=== PATIENT | female | born 1955 | race Caucasian/White ===

== ENCOUNTER 2024-04-29 09:05 | Observation (INO) ==
[2024-04-29 09:37] VITALS: BMI 27.3
--- NOTE | 2024-04-29 09:42 | DR.HTN ---
HPI Time Seen Time Seen by Provider: 04/29/24 09:29 Complaints Chief Complaint Doctors Comments: 68-year-old female presents for evaluation.. Her spouse has been ill over the past 5 days or so.. Patient is a poor historian, has a wandering history. Patient has been having diarrhea over the past 5 days. Had nausea and vomiting yesterday. Some general weakness. Patient has fallen 3 times in the past few days. Did have a headache at onset, better now. Was also having right lower leg pain, better now. Patient with slurring of the speech at times, not now. May have been running a fever, think so subjectively. Denies sinus congestion, sore throat, cough, shortness of breath. Denies urinary issues. Was seen in PCPs office yesterday, had high blood pressure, was started on lisinopril then.. Patient recently stopped her oxycodone, she was on chronically. Reviewed Nurses Notes Reviewed: Yes Source History Provided: Patient Mode of Arrival Mode of Arrival: Wheelchair PMH PMH Past Medical History: Anxiety, Arthritis, Depression, GERD and Hyperthyroidism Past Surgical History: Yes Surgical History: Ortho Surgery Social History Does patient currently use any type of tobacco product: No Alcohol Use: None Do you use any recreational Drugs:: No ROS Review of Systems Constitutional: No Symptoms Reported Eyes: No Symptoms Reported ENTM: No Symptoms Reported Respiratoy: No Symptoms Reported Cardiovascular: No Symptoms Reported Gastrointestinal/Abdominal: See HPI Genitourinary: No Symptoms Reported Neurological: Headache and Weakness Musculoskeletal: No Symptoms Reported Integumentary: No Symptoms Reported Hematologic/Lymphatic: No Symptoms Reported All Other Systems: Reviewed and Negative PE Vital Signs Vitals: Vital Signs Temperature 98.2 F Pulse Rate 59 Pulse Rate 62 Pulse Rate 79 Pulse Rate 61 Pulse Rate 72 Pulse Rate 62 Pulse Rate 61 Pulse Rate 67 Respiratory Rate 18 Respiratory Rate 25 Respiratory Rate 25 Respiratory Rate 17 Respiratory Rate 19 Respiratory Rate 20 Respiratory Rate 16 Blood Pressure 190/84 Blood Pressure 234/95 O2 Sat by Pulse Oximetry 100 O2 Sat by Pulse Oximetry 100 O2 Sat by Pulse Oximetry 100 O2 Sat by Pulse Oximetry 99 O2 Sat by Pulse Oximetry 97 O2 Sat by Pulse Oximetry 98 O2 Sat by Pulse Oximetry 98 O2 Sat by Pulse Oximetry 100 General General Appearance: Alert and In No Apparent Distress Head Head Exam: Normal Inspection, Atraumatic and Normocephalic Eyes Eye exam: PERRL and EOMI ENT ENT Exam: Normal Oropharynx and Mucous Membranes Moist Neck Neck Exam: Normal Inspection Respiratory Respiratory Exam: Normal Lung Sounds Bilat; negative Accessory Muscle Use or Respiratory Distress Cardiovascular Cardiovascular Exam: Regular Rate, Normal Rhythm and Normal Heart Sounds Abdominal Exam Abdominal Exam: Normal Bowel Sounds and Soft; negative Tenderness, Guarding or Rebound Extremities Extremities Exam: Normal Inspection Neurologic Neurological Exam: Alert, Oriented X3 and CN II-XII Intact; negative Motor Sensory Deficit Skin Skin Exam: Warm and Dry COURSE Treatment Treatment: 68-year-old female ill over the past 5 days, has been having diarrhea and decreased p.o. intake. Has been having falls and confusion. Workup initiated. Brain CT unremarkable for acute abnormalities. Chest x-ray is cleared. Labs show mild anemia, hemoglobin 10.3. Chemistries markedly abnormal with a sodium low at 125. She has a elevated creatinine of 4.02, EGFR is low at 12. BP elevated, given IV hydralazine. Patient clinically with acute nontraumatic renal injury, and hyponatremia. Recommend admission for further treatment. Discussed with her covering MD, Dr. Henderson, accepts the admission. ROR Labs Reviewed Laboratory Results Reviewed?: Yes 04/29/24 09:35 04/29/24 09:35 Laboratory: WBC 6.9 X10^3/uL (3.6-10.0) 04/29/24 09:35 RBC 3.50 X10^6/uL (3.5-5.4) 04/29/24 09:35 Hgb 10.3 g/dL (12.0-16.0) L 04/29/24 09:35 Hct 30.4 % (36.0-47.0) L 04/29/24 09:35 MCV 86.8 fL (80.0-100.0) 04/29/24 09:35 MCH 29.3 pg (27.0-34.0) 04/29/24 09:35 MCHC 33.8 g/dL (33.0-35.0) 04/29/24 09:35 RDW 13.1 % (11.6-16.5) 04/29/24 09:35 Plt Count 309 X10^3/uL (150.0-450.0) 04/29/24 09:35 MPV 8.1 fL (7.4-11.0) 04/29/24 09:35 Neut % (Auto) 67.4 % (42.0-75.0) 04/29/24 09:35 Lymph % (Auto) 18.7 % (21.0-51.0) L 04/29/24 09:35 [place] % (Auto) 8.8 % (0.0-13.0) 04/29/24 09:35 Eos % (Auto) 4.0 % (0.9-2.9) H 04/29/24 09:35 Baso % (Auto) 1.1 % (0.2-1.0) H 04/29/24 09:35 Neut # (Auto) 4.6 x10^3/uL (2.2-4.8) 04/29/24 09:35 Lymph # (Auto) 1.3 X10^3/uL (1.3-2.9) 04/29/24 09:35 [place] # (Auto) 0.6 x10^3/uL (0.3-0.8) 04/29/24 09:35 Eos # (Auto) 0.3 x10^3/uL (0.0-0.2) H 04/29/24 09:35 Baso # (Auto) 0.1 X10^3/uL (0.0-0.1) 04/29/24 09:35 Absolute Nucleated RBC 0.1 /100WBC 04/29/24 09:35 Sodium 125 mmol/L (136-145) L* 04/29/24 09:35 Corrected Sodium TNP 04/29/24 09:35 Potassium 3.7 mmol/L (3.5-5.1) 04/29/24 09:35 Chloride 94 mmol/L (98-107) L 04/29/24 09:35 Carbon Dioxide 21.3 mmol/L (21-32) 04/29/24 09:35 BUN 22 mg/dL (7-18) H 04/29/24 09:35 Creatinine 4.02 mg/dL (0.55-1.02) H 04/29/24 09:35 Est GFR (MDRD) Af Amer 14 (>60) L 04/29/24 09:35 Est GFR (MDRD) Non-Af 12 (>60) L 04/29/24 09:35 Glucose 96 mg/dL (65-99) 04/29/24 09:35 Calcium 8.8 mg/dL (8.5-10.1) 04/29/24 09:35 Corrected Calcium 9.6 mg/dL (8.5-10.1) 04/29/24 09:35 Total Bilirubin 0.40 mg/dL (0.2-1.0) 04/29/24 09:35 AST 24 Units/L (15-37) 04/29/24 09:35 ALT 16 Units/L (12-78) 04/29/24 09:35 Alkaline Phosphatase 90 Units/L (46-116) 04/29/24 09:35 Troponin I High Sens < 4.0 ng/L (4.0-60.0) L 04/29/24 09:35 Total Protein 6.3 g/dL (6.4-8.2) L 04/29/24 09:35 Albumin 3.0 g/dL (3.4-5.0) L 04/29/24 09:35 Globulin 3.3 g/dL (2.5-4.5) 04/29/24 09:35 Albumin/Globulin Ratio 0.9 Ratio (1.1-2.1) L 04/29/24 09:35 Lipase 55 Units/L (16-77) 04/29/24 09:35 Specimen Type Clean catch urine 04/29/24 10:34 Urine Color Straw (YELLOW) 04/29/24 10:34 Urine Appearance Clear (CLEAR) 04/29/24 10:34 Urine pH 6.0 (5.0 - 8.0) 04/29/24 10:34 Ur Specific [place] 1.010 (1.000-1.030) 04/29/24 10:34 Urine Protein 1+ (NEGATIVE) 04/29/24 10:34 Urine Glucose (UA) Negative (NEGATIVE) 04/29/24 10:34 Urine Ketones Negative (NEGATIVE) 04/29/24 10:34 Urine Blood Negative (NEGATIVE) 04/29/24 10:34 Urine Nitrite Negative (NEGATIVE) 04/29/24 10:34 Urine Bilirubin Negative (NEGATIVE) 04/29/24 10:34 Urine Urobilinogen Normal (NORMAL) 04/29/24 10:34 Ur Leukocyte Esterase Negative (NEGATIVE) 04/29/24 10:34 Urine RBC 0-2 /HPF (0-3) 04/29/24 10:34 Urine WBC 3-5 /HPF (0-5) 04/29/24 10:34 Ur Squamous Epith Cells Moderate /HPF (NEGATIVE) 04/29/24 10:34 Urine Bacteria Negative /HPF (NEGATIVE) 04/29/24 10:34 Ur Culture Indicated? No/not indicated 04/29/24 10:34 Urine Opiates Screen Negative (NEG=<300) 04/29/24 10:34 Urine Methadone Screen Negative (NEG=<300) 04/29/24 10:34 Ur Barbiturates Screen Negative (NEG=<200) 04/29/24 10:34 Ur Phencyclidine Scrn Negative (NEG=<25) 04/29/24 10:34 Ur Amphetamines Screen Negative (NEG=<1000) 04/29/24 10:34 U Benzodiazepines Scrn Positive (NEG=<200) A 04/29/24 10:34 Urine Cocaine Screen Negative (NEG=<300) 04/29/24 10:34 U Marijuana (THC) Screen Negative (NEG=<50) 04/29/24 10:34 Sodium low at 125, creatinine elevated at 4.02, EGFR low at 12 XRAY XRAY Interpreted by: Both X-ray Results: CXR, brain CT acceptable. EKG Rate: 63 [place]: LAD (-27) Rhythm: NSR ST: Nonsp Opioid Opioid Risk Tool Age (Fred box if 16-45): No History of Preadolescent Sexual Abuse: No Total: 0 Total Score Risk Category: Low Risk Copyright: Evin POZO predicting aberrant behaviors Discharge Plan Diagnosis Discharge Problem: Acute nontraumatic kidney injury, Acute hyponatremia Discharge Plan Patient Disposition: ADMITTED INPATIENT Condition: Stable
[2024-04-29] MEDS: NS 1,000 ML IV 1,000 ML IV ONE (09:50)
[2024-04-29 09:52] LABS: BASOPHILS # (AUTO) 0.1 X10^3/uL (0.0-0.1); BASOPHILS % (AUTO) 1.1 % (0.2-1.0); EOSINOPHILS # (AUTO) 0.3 x10^3/uL (0.0-0.2); HEMATOCRIT 30.4 % (36.0-47.0); HEMOGLOBIN 10.3 g/dL (12.0-16.0); LYMPHOCYTES # (AUTO) 1.3 X10^3/uL (1.3-2.9); LYMPHOCYTES % (AUTO) 18.7 % (21.0-51.0); MEAN CORPUSCULAR HEMOGLOBIN 29.3 pg (27.0-34.0); MEAN CORPUSCULAR HGB CONC 33.8 g/dL (33.0-35.0); MEAN CORPUSCULAR VOLUME 86.8 fL (80.0-100.0); MEAN PLATELET VOLUME 8.1 fL (7.4-11.0); MONOCYTES # (AUTO) 0.6 x10^3/uL (0.3-0.8); MONOCYTES % (AUTO) 8.8 % (0.0-13.0); NEUTROPHILS # (AUTO) 4.6 x10^3/uL (2.2-4.8); NEUTROPHILS % (AUTO) 67.4 % (42.0-75.0); PLATELET COUNT 309 X10^3/uL (150.0-450.0); RED CELL DISTRIBUTION WIDTH 13.1 % (11.6-16.5); WHITE BLOOD COUNT 6.9 X10^3/uL (3.6-10.0)
--- NOTE | 2024-04-29 09:56 | EKG ---
Test Reason : altered mental status Blood Pressure : */* mmHG Vent. Rate : 63 BPM Atrial Rate : 63 BPM P-R Int : 154 ms QRS Dur : 90 ms QT Int : 444 ms P-R-T Axes : -5 -27 10 degrees QTc Int : 454 ms Normal sinus rhythm Nonspecific T wave abnormality Abnormal ECG When compared with ECG of 28-SEP-2023 19:51, No significant change was found Confirmed by Martinez Arana MD ([id number]) on 04/30/2024 7:36:05 AM Referred By: Confirmed By: Martinez Arana MD
[2024-04-29 10:08] LABS: ALANINE AMINOTRANSFERASE 16 Units/L (12-78); ALKALINE PHOSPHATASE 90 Units/L (46-116); ASPARTATE AMINO TRANSFERASE 24 Units/L (15-37); BLOOD UREA NITROGEN 22 mg/dL (7-18); CALCIUM 8.8 mg/dL (8.5-10.1); CARBON DIOXIDE 21.3 mmol/L (21-32); CHLORIDE 94 mmol/L (98-107); COR CA(FOR HYPOALB) 9.6 mg/dL (8.5-10.1); CREATININE 4.02 mg/dL (0.55-1.02); GLUCOSE 96 mg/dL (65-99); LIPASE 55 Units/L (16-77); POTASSIUM 3.7 mmol/L (3.5-5.1); TOTAL PROTEIN 6.3 g/dL (6.4-8.2); eGFR NON BLACK RACES 12 (>60)
[2024-04-29 10:10] LABS: SODIUM 125 mmol/L (136-145)
--- NOTE | 2024-04-29 10:26 | CT ---
EXAM: BRAIN W/O CON HISTORY: altered mental status; COMPARISON: None. TECHNIQUE: Axial CT of the head is performed from the base of the skull through the vertex without contrast . Mu ltiplaner reformats are generated from the original axial data. FINDINGS: There is no evidence of an acute intracranial hemorrhage or extra-axial fluid collection. There is n o mass effect, midline shift, or evidence of cerebral edema. The ventricular size is normal. Cortic al mac-white matter differentiation is maintained without sulcal effacement. There is no evidence o f an acute stage, large artery territorial infarction. The calvarium is intact. The paranasal sinuses and mastoid air cells are clear. The cerebellar tons ils are normal in position. No suprasellar asymmetry is identified. Mild age-related cortical volume loss is observed, along with degenerative periventricular white vernell er hypoattenuation most likely on the basis of normal aging or microangiopathic degeneration. IMPRESSION: No acute intracranial abnormalities Radiation dose reduction was achieved through individualized adjustment of kVP and/or mA, through ada ptive statistical iterative reconstruction, and/or through automated tube current modulation. THIS IS AN ELECTRONICALLY VERIFIED FINAL REPORT 04/29/2024 10:17 AM - Electronically signed by Ciro Hackett MD
--- NOTE | 2024-04-29 10:26 | RAD ---
EXAM:CHEST, 1 VIEWHISTORY:ALTERED MENTAL STATUS;COMPARISON:September 28TECHNIQUE:Chest x-ray single view performedFINDINGS:Heart size and mediastinal contours are normal. Lungs are predominantly clear aside from minimal subsegmental linear atelectasis or parenchymal scarring in the left lung base which is unchanged. No developing pleural fluid collections are identified. No free air or pneumothorax. No acute bony abnormality.IMPRESSION:Stable chest radiograph without acute abnormalities.THIS IS AN ELECTRONICALLY VERIFIED FINAL REPORT04/29/2024 10:18 AM - Electronically signed by Ciro Hackett MD
[2024-04-29 10:43] LABS: BILIRUBIN,URINE NEGATIVE (NEGATIVE); BLOOD/HEMOGLOBIN,URINE NEGATIVE (NEGATIVE); GLUCOSE, URINE NEGATIVE (NEGATIVE); KETONES,URINE NEGATIVE (NEGATIVE); LEUKOCYTE ESTERASE ,URINE NEGATIVE (NEGATIVE); NITRITES,URINE NEGATIVE (NEGATIVE); PROTEIN,URINE 1+ (NEGATIVE); UROBILINOGEN,URINE NORMAL (NORMAL)
[2024-04-29 10:54] LABS: APPEARANCE,URINE CLEAR (CLEAR); COLOR,URINE STRAW (YELLOW); RBC,URINE 0-2 /HPF (0-3); SQUAMOUS EPITHELIAL CELL,UR MODERATE /HPF (NEGATIVE)
[2024-04-29 10:56] LABS: BACTERIA,URINE NEGATIVE /HPF (NEGATIVE)
[2024-04-29] MEDS: APRESOLINE INJ 20 MG VIAL IVP ONE ×2 (11:03→12:05)
[2024-04-29 12:43] LABS: BILIRUBIN,URINE NEGATIVE (NEGATIVE); BLOOD/HEMOGLOBIN,URINE NEGATIVE (NEGATIVE); GLUCOSE, URINE NEGATIVE (NEGATIVE); KETONES,URINE NEGATIVE (NEGATIVE); LEUKOCYTE ESTERASE ,URINE NEGATIVE (NEGATIVE); NITRITES,URINE NEGATIVE (NEGATIVE); PROTEIN,URINE 1+ (NEGATIVE); UROBILINOGEN,URINE NORMAL (NORMAL)
[2024-04-29] MEDS: APRESOLINE INJ 20 MG VIAL ONE (12:43)
[2024-04-29 12:51] LABS: APPEARANCE,URINE CLEAR (CLEAR); COLOR,URINE STRAW (YELLOW)
[2024-04-29 12:52] LABS: BACTERIA,URINE NEGATIVE /HPF (NEGATIVE); RBC,URINE NONE SEEN /HPF (0-3); SQUAMOUS EPITHELIAL CELL,UR RARE /HPF (NEGATIVE)
[2024-04-29] MEDS ORDERED: AMBIEN PO PRN (13:08)
[2024-04-29] MEDS: CONSULT PHARMACY - POTASSIUM & MAGNESIUM XX SCH (13:10)
[2024-04-29] MEDS: NS 1,000 ML IV 1,000 ML IV SCH (13:27)
[2024-04-29] MEDS: PROzac PO SCH (13:27)
[2024-04-29] MEDS: PERCOCET TAB 5/325 MG PO PRN (15:11)
[2024-04-29] MEDS: CATAPRES TAB 0.1 MG PO ONE (16:39)
[2024-04-29] MEDS: FLONASE NASAL SPRAY ENOSTRIL SCH (16:40)
[2024-04-29] MEDS: ZANAFLEX PO SCH (20:50)
[2024-04-30 05:27] LABS: BASOPHILS # (AUTO) 0.1 X10^3/uL (0.0-0.1); BASOPHILS % (AUTO) 1.2 % (0.2-1.0); EOSINOPHILS # (AUTO) 0.2 x10^3/uL (0.0-0.2); EOSINOPHILS % (AUTO) 2.9 % (0.9-2.9); HEMOGLOBIN 9.7 g/dL (12.0-16.0); LYMPHOCYTES # (AUTO) 1.6 X10^3/uL (1.3-2.9); MEAN CORPUSCULAR HEMOGLOBIN 29.1 pg (27.0-34.0); MEAN CORPUSCULAR HGB CONC 33.5 g/dL (33.0-35.0); MEAN CORPUSCULAR VOLUME 86.8 fL (80.0-100.0); MEAN PLATELET VOLUME 8.5 fL (7.4-11.0); MONOCYTES # (AUTO) 0.5 x10^3/uL (0.3-0.8); MONOCYTES % (AUTO) 8.8 % (0.0-13.0); NEUTROPHILS # (AUTO) 3.2 x10^3/uL (2.2-4.8); NEUTROPHILS % (AUTO) 58.1 % (42.0-75.0); PLATELET COUNT 326 X10^3/uL (150.0-450.0); RED BLOOD COUNT 3.34 X10^6/uL (3.5-5.4); RED CELL DISTRIBUTION WIDTH 13.3 % (11.6-16.5); WHITE BLOOD COUNT 5.5 X10^3/uL (3.6-10.0)
[2024-04-30 05:43] LABS: ALANINE AMINOTRANSFERASE 14 Units/L (12-78); ALBUMIN 2.7 g/dL (3.4-5.0); ALKALINE PHOSPHATASE 81 Units/L (46-116); ASPARTATE AMINO TRANSFERASE 13 Units/L (15-37); BLOOD UREA NITROGEN 22 mg/dL (7-18); CALCIUM 8.5 mg/dL (8.5-10.1); CARBON DIOXIDE 20.1 mmol/L (21-32); CHLORIDE 103 mmol/L (98-107); COR CA(FOR HYPOALB) 9.5 mg/dL (8.5-10.1); CREATININE 3.01 mg/dL (0.55-1.02); GLUCOSE 85 mg/dL (65-99); POTASSIUM 3.6 mmol/L (3.5-5.1); SODIUM 134 mmol/L (136-145); eGFR NON BLACK RACES 16 (>60)
[2024-04-30] MEDS ORDERED: CONSULT PHARMACY - POTASSIUM & MAGNESIUM XX SCH (07:00)
[2024-04-30] MEDS: FOLIC ACID TAB 1 MG PO SCH (08:57)
[2024-04-30] MEDS: ESTRACE PO SCH (08:57)
[2024-04-30] MEDS: ZyrTEC TAB 10 MG PO SCH (08:57)
[2024-04-30] MEDS: K-DUR TAB 20 MEQ PO SCH (08:57)
[2024-04-30] MEDS: PriLOSEC PO SCH (08:57)
[2024-04-30] MEDS: PEPCID TAB 20 MG PO SCH (08:57)
[2024-04-30] MEDS ORDERED: ZESTRIL TAB 5 MG PO SCH (09:00)
--- NOTE | 2024-04-30 09:56 | DR.H&P ---
H&P History & Physical for Day of: H&P Date: 04/30/24 Chief Complaint Chief Complaint: weakness, diarrhea and poor appetite History of Present Illness History of Present Illness: Ms Jean Baptiste is a 68y/o female with a PMH of HTN, G ERD, Anxiety, depression and HLD presented with generalized weakness, diarrhea and poor oral intake. She reports being sick for almost a week with diarrhea. She has had decreased oral intake. She was also having a headache and elevated BP. Er work up showed Na 125, BUN/Cr 22/4.02, UA, CXR and CT-brain were all negative. COVID negative. She was given IV hydralazine and clonidine for BP. She was started on IV hydration and admitted for LENNIE and dehydration. She is feeling better this morning. Her BP remains elevated. She has not had any diarrhea since admission. Labs/imaging reviewed: -WBC 5.5 Hgb 9.7 K 3.6 Na: 134 BUN/Cr 22/3.01 -UA negative -CXR no acute process -CT-brain: no acute changes Plan: continue hydration with NS, monitor renal function and electrolytes. Replace electrolytes as per protocol. Will add amlodipine for HTN. C. diff pending. Resume home medications. Hold nephrotoxic medications. PT/OT as tolerated. Monitor AM labs/imaging. Past Medical History Past Medical History: Anxiety, Arthritis, Depression, GERD and Hyperthyroidism Past Surgical History Surgical History: Appendectomy, Cholecystectomy, Hysterectomy and Ortho Surgery Family History Family Medical History: Hypertension Social History Does patient currently use any type of tobacco product: No Have you used tobacco products in the last 12 months: No Type of Tobacco Use: None Does any household member use tobacco: No Alcohol Use: None Drug Use: Other Medications Home Medications: Home Medications Medication Instructions Recorded Confirmed Type alprazolam 1 mg tablet (Xanax) 1 mg PO BID PRN 09/28/23 04/29/24 History cetirizine 10 mg tablet (Zyrtec) 10 mg PO QDAY 09/28/23 04/29/24 History dicyclomine 20 mg tablet 20 mg PO QDAY PRN 09/28/23 04/29/24 History estradiol 2 mg tablet 2 mg PO QDAY 09/28/23 04/29/24 History famotidine 20 mg tablet 20 mg PO BID 09/28/23 04/29/24 History fluoxetine 20 mg capsule (Prozac) 40 mg PO DAILY 09/28/23 04/29/24 History folic acid 1 mg tablet 1 mg PO QDAY 09/28/23 04/29/24 History meloxicam 15 mg tablet 15 mg PO QDAY 09/28/23 04/29/24 History omeprazole 40 mg capsule,delayed 40 mg PO QDAY 09/28/23 04/29/24 History release oxycodone-acetaminophen 10 mg-325 1 tab PO TID PRN 09/28/23 04/29/24 History mg tablet pregabalin 50 mg capsule (Lyrica) 50 mg PO BID 09/28/23 04/29/24 History valacyclovir 1 gram tablet 1,000 mg PO TID 09/28/23 04/29/24 History lisinopril 2.5 mg tablet 2.5 mg PO QDAY 04/29/24 04/29/24 History ondansetron 4 mg disintegrating 4 mg PO Q6HR PRN 04/29/24 04/29/24 History tablet rosuvastatin 5 mg tablet 5 mg PO QMWF 04/29/24 04/29/24 History tizanidine 4 mg tablet 4 mg PO BID 04/29/24 04/29/24 History zolpidem 10 mg tablet 10 mg PO HS 04/29/24 04/29/24 History Allergies Allergies Allergy/AdvReac Type Severity Reaction Status Date / Time No Known Allergies Allergy Verified 09/28/23 20:01 Labs 04/30/24 04:28 04/30/24 04:28 Labs: Laboratory WBC 5.5 X10^3/uL (3.6-10.0) 04/30/24 04:28 RBC 3.34 X10^6/uL (3.5-5.4) L 04/30/24 04:28 Hgb 9.7 g/dL (12.0-16.0) L 04/30/24 04:28 Hct 29.0 % (36.0-47.0) L 04/30/24 04:28 MCV 86.8 fL (80.0-100.0) 04/30/24 04:28 MCH 29.1 pg (27.0-34.0) 04/30/24 04:28 MCHC 33.5 g/dL (33.0-35.0) 04/30/24 04:28 RDW 13.3 % (11.6-16.5) 04/30/24 04:28 Plt Count 326 X10^3/uL (150.0-450.0) 04/30/24 04:28 MPV 8.5 fL (7.4-11.0) 04/30/24 04:28 Neut % (Auto) 58.1 % (42.0-75.0) 04/30/24 04:28 Lymph % (Auto) 29.0 % (21.0-51.0) 04/30/24 04:28 [place] % (Auto) 8.8 % (0.0-13.0) 04/30/24 04:28 Eos % (Auto) 2.9 % (0.9-2.9) 04/30/24 04:28 Baso % (Auto) 1.2 % (0.2-1.0) H 04/30/24 04:28 Neut # (Auto) 3.2 x10^3/uL (2.2-4.8) 04/30/24 04:28 Lymph # (Auto) 1.6 X10^3/uL (1.3-2.9) 04/30/24 04:28 [place] # (Auto) 0.5 x10^3/uL (0.3-0.8) 04/30/24 04:28 Eos # (Auto) 0.2 x10^3/uL (0.0-0.2) 04/30/24 04:28 Baso # (Auto) 0.1 X10^3/uL (0.0-0.1) 04/30/24 04:28 Absolute Nucleated RBC 0.0 /100WBC 04/30/24 04:28 Sodium 134 mmol/L (136-145) L 04/30/24 04:28 Corrected Sodium TNP 04/30/24 04:28 Potassium 3.6 mmol/L (3.5-5.1) 04/30/24 04:28 Chloride 103 mmol/L (98-107) 04/30/24 04:28 Carbon Dioxide 20.1 mmol/L (21-32) L 04/30/24 04:28 BUN 22 mg/dL (7-18) H 04/30/24 04:28 Creatinine 3.01 mg/dL (0.55-1.02) H 04/30/24 04:28 Est GFR (MDRD) Af Amer 20 (>60) L 04/30/24 04:28 Est GFR (MDRD) Non-Af 16 (>60) L 04/30/24 04:28 Glucose 85 mg/dL (65-99) 04/30/24 04:28 Calcium 8.5 mg/dL (8.5-10.1) 04/30/24 04:28 Corrected Calcium 9.5 mg/dL (8.5-10.1) 04/30/24 04:28 Magnesium 2.1 mg/dL (2.0-2.9) 04/29/24 09:35 Total Bilirubin 0.30 mg/dL (0.2-1.0) 04/30/24 04:28 AST 13 Units/L (15-37) L 04/30/24 04:28 ALT 14 Units/L (12-78) 04/30/24 04:28 Alkaline Phosphatase 81 Units/L (46-116) 04/30/24 04:28 Troponin I High Sens < 4.0 ng/L (4.0-60.0) L 04/29/24 09:35 Total Protein 6.0 g/dL (6.4-8.2) L 04/30/24 04:28 Albumin 2.7 g/dL (3.4-5.0) L 04/30/24 04:28 Globulin 3.3 g/dL (2.5-4.5) 04/30/24 04:28 Albumin/Globulin Ratio 0.8 Ratio (1.1-2.1) L 04/30/24 04:28 Lipase 55 Units/L (16-77) 04/29/24 09:35 Specimen Type Catherized urine 04/29/24 12:20 Urine Color Straw (YELLOW) 04/29/24 12:20 Urine Appearance Clear (CLEAR) 04/29/24 12:20 Urine pH 6.0 (5.0 - 8.0) 04/29/24 12:20 Ur Specific [place] 1.005 (1.000-1.030) 04/29/24 12:20 Urine Protein 1+ (NEGATIVE) 04/29/24 12:20 Urine Glucose (UA) Negative (NEGATIVE) 04/29/24 12:20 Urine Ketones Negative (NEGATIVE) 04/29/24 12:20 Urine Blood Negative (NEGATIVE) 04/29/24 12:20 Urine Nitrite Negative (NEGATIVE) 04/29/24 12:20 Urine Bilirubin Negative (NEGATIVE) 04/29/24 12:20 Urine Urobilinogen Normal (NORMAL) 04/29/24 12:20 Ur Leukocyte Esterase Negative (NEGATIVE) 04/29/24 12:20 Urine RBC None seen /HPF (0-3) 04/29/24 12:20 Urine WBC None seen /HPF (0-5) 04/29/24 12:20 Ur Squamous Epith Cells Rare /HPF (NEGATIVE) 04/29/24 12:20 Urine Bacteria Negative /HPF (NEGATIVE) 04/29/24 12:20 Ur Culture Indicated? No/not indicated 04/29/24 12:20 Urine Opiates Screen Negative (NEG=<300) 04/29/24 10:34 Urine Methadone Screen Negative (NEG=<300) 04/29/24 10:34 Ur Barbiturates Screen Negative (NEG=<200) 04/29/24 10:34 Ur Phencyclidine Scrn Negative (NEG=<25) 04/29/24 10:34 Ur Amphetamines Screen Negative (NEG=<1000) 04/29/24 10:34 U Benzodiazepines Scrn Positive (NEG=<200) A 04/29/24 10:34 Urine Cocaine Screen Negative (NEG=<300) 04/29/24 10:34 U Marijuana (THC) Screen Negative (NEG=<50) 04/29/24 10:34 SARS-CoV-2 (PCR) Negative (NEGATIVE) 04/29/24 12:03 Review of Systems Constitutional: Weakness Eyes: No Symptoms Reported ENT: No Symptoms Reported Respiratory: No Symptoms Reported Cardiovascular: No Symptoms Reported Gastrointestinal: Vomiting and Diarrhea Genitourinary: No Symptoms Reported Musculoskeletal: No Symptoms Reported Skin: No Symptoms Reported Neurological: No Symptoms Reported Physical Exam Vital Signs: Vital Signs Temperature 98.3 F Pulse Rate 75 Pulse Rate 84 Pulse Rate 66 Pulse Rate 76 Pulse Rate 69 Pulse Rate 65 Pulse Rate 64 Pulse Rate 67 Pulse Rate 70 Pulse Rate 61 Pulse Rate 62 Pulse Rate 59 Pulse Rate 59 Pulse Rate 66 Pulse Rate 68 Respiratory Rate 16 Respiratory Rate 21 Respiratory Rate 21 Respiratory Rate 19 Respiratory Rate 16 Respiratory Rate 24 Respiratory Rate 20 Respiratory Rate 14 Respiratory Rate 15 Respiratory Rate 16 Respiratory Rate 17 Respiratory Rate 17 Respiratory Rate 15 Respiratory Rate 15 Respiratory Rate 20 Respiratory Rate 20 Blood Pressure 162/72 Blood Pressure 179/76 Blood Pressure 173/69 Blood Pressure 158/97 Blood Pressure 178/74 Blood Pressure 182/79 Blood Pressure 162/71 Blood Pressure 150/65 Blood Pressure 144/63 Blood Pressure 157/69 Blood Pressure 158/69 Blood Pressure 146/64 Blood Pressure 146/64 Blood Pressure 138/62 Blood Pressure 154/67 O2 Sat by Pulse Oximetry 98 O2 Sat by Pulse Oximetry 98 O2 Sat by Pulse Oximetry 100 O2 Sat by Pulse Oximetry 99 O2 Sat by Pulse Oximetry 100 O2 Sat by Pulse Oximetry 99 O2 Sat by Pulse Oximetry 97 O2 Sat by Pulse Oximetry 98 O2 Sat by Pulse Oximetry 99 O2 Sat by Pulse Oximetry 97 O2 Sat by Pulse Oximetry 98 O2 Sat by Pulse Oximetry 97 O2 Sat by Pulse Oximetry 97 O2 Sat by Pulse Oximetry 97 O2 Sat by Pulse Oximetry 98 Oriented: Normal Eyes: Normal Throat: Normal Respiratory: Clear Throughout Cardiovascular: Normal Auscultation: Bowel Sounds: Normal Palpation: Normal Tenderness: Normal Skin: Normal Musculoskeletal: Normal Psychiatric: Normal Mood Description: Calm Affect: Normal Speech Pattern: Clear and Appropriate Assessment/Plan (1) Acute hyponatremia: Status: Acute (2) Acute nontraumatic kidney injury: Status: Acute (3) Dehydration: Status: Acute (4) Generalized weakness: Status: Acute (5) Anemia: Qualifiers: Anemia type: unspecified type Qualified Code(s): D64.9 - Anemia, unspecified Status: Acute (6) HTN (hypertension): Qualifiers: Hypertension type: primary hypertension Qualified Code(s): I10 - Essential (primary) hypertension Status: Acute (7) HLD (hyperlipidemia): Qualifiers: Hyperlipidemia type: mixed hyperlipidemia Qualified Code(s): E78.2 - Mixed hyperlipidemia Status: Acute (8) Anxiety and depression: Status: Acute Review H&P Reviewed: Yes Patient was examined?: Yes
[2024-04-30] MEDS: APRESOLINE INJ 20 MG VIAL IVP PRN ×2 (10:02→19:17)
[2024-04-30] MEDS: NORVASC TAB 5 MG PO SCH (12:03)
[2024-04-30] MEDS: ALPRAZOLAM ODT PO PRN (21:32)
[2024-05-01 04:56] LABS: BASOPHILS # (AUTO) 0.1 X10^3/uL (0.0-0.1); BASOPHILS % (AUTO) 1.2 % (0.2-1.0); EOSINOPHILS # (AUTO) 0.2 x10^3/uL (0.0-0.2); EOSINOPHILS % (AUTO) 3.4 % (0.9-2.9); HEMATOCRIT 31.4 % (36.0-47.0); HEMOGLOBIN 10.5 g/dL (12.0-16.0); LYMPHOCYTES # (AUTO) 2.2 X10^3/uL (1.3-2.9); LYMPHOCYTES % (AUTO) 35.1 % (21.0-51.0); MEAN CORPUSCULAR HEMOGLOBIN 29.2 pg (27.0-34.0); MEAN CORPUSCULAR HGB CONC 33.5 g/dL (33.0-35.0); MEAN CORPUSCULAR VOLUME 87.1 fL (80.0-100.0); MEAN PLATELET VOLUME 8.7 fL (7.4-11.0); MONOCYTES # (AUTO) 0.7 x10^3/uL (0.3-0.8); NEUTROPHILS % (AUTO) 49.3 % (42.0-75.0); PLATELET COUNT 379 X10^3/uL (150.0-450.0); RED CELL DISTRIBUTION WIDTH 13.2 % (11.6-16.5); WHITE BLOOD COUNT 6.1 X10^3/uL (3.6-10.0)
[2024-05-01 05:03] LABS: ALANINE AMINOTRANSFERASE 13 Units/L (12-78); ALBUMIN 3.2 g/dL (3.4-5.0); ALKALINE PHOSPHATASE 86 Units/L (46-116); ASPARTATE AMINO TRANSFERASE 12 Units/L (15-37); BLOOD UREA NITROGEN 15 mg/dL (7-18); CALCIUM 9.2 mg/dL (8.5-10.1); CARBON DIOXIDE 21.4 mmol/L (21-32); CHLORIDE 108 mmol/L (98-107); COR CA(FOR HYPOALB) 9.8 mg/dL (8.5-10.1); CREATININE 1.64 mg/dL (0.55-1.02); GLUCOSE 89 mg/dL (65-99); MAGNESIUM 1.3 mg/dL (2.0-2.9); POTASSIUM 3.4 mmol/L (3.5-5.1); SODIUM 140 mmol/L (136-145); eGFR NON BLACK RACES 33 (>60)
[2024-05-01] MEDS ORDERED: CONSULT PHARMACY - POTASSIUM & MAGNESIUM XX SCH (07:00)
[2024-05-01] MEDS: K-DUR TAB 20 MEQ PO SCH (08:13)
[2024-05-01] MEDS: NS 1,000 ML IV 1,000 ML with MAGNESIUM SULFATE 50% INJ VIAL 2 G IV SCH (08:14)
[2024-05-01] MEDS ORDERED: MAG-OX TAB PO SCH (09:00)
[2024-05-01 09:26] VITALS: TEMP 97.9
[2024-05-01 10:16] VITALS: BP 93/52; PULSE 63; RESP 30; O2SAT 97
== END 2024-05-01 11:43 | disposition home or self-care (01) ==
LOC: ER 09:05 → U 10:55 → INTOOBSV 10:55 → ICU 12:30
PROVIDERS: ADMIT Internal Medicine; ATTEND Internal Medicine
DX: R06.02 Shortness of breath; R47.81 Slurred speech; F41.8 Other specified anxiety disorders; R41.82 Altered mental status, unspecified; E83.42 Hypomagnesemia; I10 Essential (primary) hypertension; E78.2 Mixed hyperlipidemia; E86.0 Dehydration; Z20.822 Contact with and (suspected) exposure to COVID-19; R53.1 Weakness; E87.1 Hypo-osmolality and hyponatremia; K21.9 Gastro-esophageal reflux disease without esophagitis; F32.A Depression, unspecified; R51.9 Headache, unspecified; N17.8 Other acute kidney failure

== ENCOUNTER 2025-05-21 20:06 | Observation (INO) ==
[2025-05-21 21:42] LABS: MEAN PLATELET VOLUME 7.7 fL (7.4-11.0); RED CELL DISTRIBUTION WIDTH 13.7 % (11.6-16.5)
--- NOTE | 2025-05-21 21:44 | EKG ---
Test Reason : CHESTPAIN/SOB Blood Pressure : */* mmHG Vent. Rate : 67 BPM Atrial Rate : 67 BPM P-R Int : 174 ms QRS Dur : 84 ms QT Int : 436 ms P-R-T Axes : 38 -32 40 degrees QTc Int : 460 ms Normal sinus rhythm Left axis deviation Abnormal ECG When compared with ECG of 29-APR-2024 09:52, Nonspecific T wave abnormality no longer evident in Inferior leads Nonspecific T wave abnormality no longer evident in Anterolateral leads Confirmed by Martinez Arana MD ([id number]) on 05/22/2025 6:49:34 AM Referred By: Confirmed By: Martinez Arana MD
[2025-05-21 21:55] LABS: CREATININE 0.86 mg/dL (0.55-1.02); eGFR NON BLACK RACES > 60 (>60)
[2025-05-21] MEDS: NS 1,000 ML IV 1,000 ML IV ONE (22:22)
--- NOTE | 2025-05-21 23:05 | DR.DIZZY ---
HPI Time seen Time Seen by Provider: 05/21/25 23:04 PCP Primary Care Physician: Complaint Chief Complaint Doctor Comments: Patient with complaint of weakness since Sunday. Patient left [facility] AMA although trying to correct her sodium and potassium. Patient has felt weak since then. Patient states she did have some episode of chest pain yesterday that only lasted a few seconds but has completely resolved since then and does not have any chest pain at this time. Chief Complaint:: pt here to the er due to feeling weak. she stated she was discharged from [facility] due to her sodium and potassium being low. pt c/o feeling as if her potassium and sodium is low again she stated she has been feeling really tired and week today. she stated yesterday she also had some chest pain but denies chest pain at this time. Source History Provided: Patient Mode of Arrival Mode of Arrival: Ambulatory Timing Onset of Chief Complaint: 05/20/25 Context Stroke Symptoms: None; denies Ataxia, Aphasia, Acute confusion, Weakness of limb, Numbness of limbs, Slurring or Dizziness PMH PMH Past Medical History: Yes Past Medical History: Anxiety, Arthritis, Depression, GERD and Hyperthyroidism Past Surgical History: Yes Surgical History: Appendectomy, Cholecystectomy, Hysterectomy and Ortho Surgery Family History History of Family Medical Conditions: Yes Family Medical History: Hypertension Social History Do you use any recreational Drugs:: No Infectious screening Have you traveled outside the country in the last 6 months?: No Isolation: Standard ROS Review of Systems Constitutional: See HPI and Weakness Eyes: No Symptoms Reported ENTM: No Symptoms Reported Respiratoy: No Symptoms Reported Cardiovascular: No Symptoms Reported Gastrointestinal/Abdominal: No Symptoms Reported Genitourinary: No Symptoms Reported Neurological: No Symptoms Reported and Weakness; negative Headache, Numbness, Paresthesia, Seizure, Tingling, Dizziness, Problems Walking or Speech Problem Musculoskeletal: No Symptoms Reported Integumentary: No Symptoms Reported Hematologic/Lymphatic: No Symptoms Reported Endocrine: No Symptoms Reported Psychiatric: No Symptoms Reported All Other Systems: Reviewed and Negative PE Vital Signs Vitals: Vital Signs Temperature 97.6 F Pulse Rate 64 Pulse Rate 67 Pulse Rate 71 Pulse Rate 69 Pulse Rate 81 Pulse Rate 62 Pulse Rate 67 Pulse Rate 66 Pulse Rate 63 Pulse Rate 70 Respiratory Rate 17 Respiratory Rate 18 Respiratory Rate 35 Respiratory Rate 35 Respiratory Rate 22 Respiratory Rate 24 Respiratory Rate 23 Respiratory Rate 18 Blood Pressure 165/77 Blood Pressure 165/77 Blood Pressure 165/77 Blood Pressure 164/65 Blood Pressure 130/73 Blood Pressure 115/56 Blood Pressure 142/64 O2 Sat by Pulse Oximetry 100 O2 Sat by Pulse Oximetry 100 O2 Sat by Pulse Oximetry 98 O2 Sat by Pulse Oximetry 100 O2 Sat by Pulse Oximetry 97 O2 Sat by Pulse Oximetry 98 O2 Sat by Pulse Oximetry 98 O2 Sat by Pulse Oximetry 99 O2 Sat by Pulse Oximetry 99 O2 Sat by Pulse Oximetry 98 General Limitations: No Limitations General Appearance: Alert and In No Apparent Distress Head Head Exam: Normal Inspection Eyes Eye exam: Normal Appearance Neck Neck Exam: Normal Inspection and Full ROM Chest Chest Inspection: Normal Inspection Respiratory Respiratory Exam: Normal Lung Sounds Bilat Cardiovascular Cardiovascular Exam: Regular Rate and Normal Rhythm Abdominal Exam Abdominal Exam: Normal Inspection, Normal Bowel Sounds and Soft Rectal Rectal Exam: Deferred Extremeties Extremities Exam: Normal Inspection and Full ROM Back Back Exam: Normal Inspection and Full ROM Neurologic Neurological Exam: Alert and Oriented X3 Psychiatric Psychiatric Exam: Normal Affect and Normal Mood Skin Skin Exam: Warm, Dry, Intact and Normal Color COURSE Treatment Treatment: Hyponatremia suspect secondary to polydipsia versus medication. Discussed results with patient and family. Patient agreeable to admission. Consultation Called: 00:19 Consultation Comments: Discussed case with Dr. Gabriel and he is agreeable to admission [facility] Labs Reviewed Laboratory Results Reviewed?: Yes 05/21/25 21:31 05/21/25 21:31 Laboratory: WBC 6.9 X10^3/uL (3.6-10.0) 05/21/25 21:31 RBC 3.96 X10^6/uL (3.5-5.4) 05/21/25 21:31 Hgb 12.0 g/dL (12.0-16.0) 05/21/25 21:31 Hct 34.8 % (36.0-47.0) L 05/21/25 21:31 MCV 87.9 fL (80.0-100.0) 05/21/25 21:31 MCH 30.3 pg (27.0-34.0) 05/21/25 21:31 MCHC 34.5 g/dL (33.0-35.0) 05/21/25 21:31 RDW 13.7 % (11.6-16.5) 05/21/25 21:31 Plt Count 333 X10^3/uL (150.0-450.0) 05/21/25 21:31 MPV 7.7 fL (7.4-11.0) 05/21/25 21: Neut % (Auto) 56.6 % (42.0-75.0) 05/21/25 21: Lymph % (Auto) 29.4 % (21.0-51.0) 05/21/25 21: [place] % (Auto) 10.2 % (0.0-13.0) 05/21/25 21: Eos % (Auto) 3.0 % (0.9-2.9) H 05/21/25 21: Baso % (Auto) 0.8 % (0.2-1.0) 05/21/25 21: Neut # (Auto) 3.9 x10^3/uL (2.2-4.8) 05/21/25 21: Lymph # (Auto) 2.0 X10^3/uL (1.3-2.9) 05/21/25 21:31 [place] # (Auto) 0.7 x10^3/uL (0.3-0.8) 05/21/25 21: Eos # (Auto) 0.2 x10^3/uL (0.0-0.2) 05/21/25 21: Baso # (Auto) 0.1 X10^3/uL (0.0-0.1) 05/21/25 21: Absolute Nucleated RBC 0.1 /100WBC 05/21/25 21: D-Dimer 0.30 ug/ml (0.0-0.57) 05/21/25 21:31 Sodium 126 mmol/L (136-145) L 05/21/25 21:31 Corrected Sodium TNP 05/21/25 21: Potassium 4.1 mmol/L (3.5-5.1) 05/21/25 21: Chloride 91 mmol/L (98-107) L 05/21/25: Carbon Dioxide 23.8 mmol/L (21-32) 05/21/25 21: BUN 5 mg/dL (7-18) L 05/21/25 21: Creatinine 0.86 mg/dL (0.55-1.02) 05/21/25 21:31 Est GFR (MDRD) Af Amer > 60 (>60) 05/21/25 21:31 Est GFR (MDRD) Non-Af > 60 (>60) 05/21/25 21:31 Glucose 107 mg/dL (65-99) H 05/21/25 21:31 Calcium 9.4 mg/dL (8.5-10.1) 05/21/25 21:31 Corrected Calcium TNP 05/21/25 21:31 Total Bilirubin 0.40 mg/dL (0.2-1.0) 05/21/25 21:31 AST 21 Units/L (15-37) 05/21/25 21:31 ALT 43 Units/L (12-78) 05/21/25 21:31 Alkaline Phosphatase 157 Units/L (46-116) H 05/21/25 21:31 Creatine Kinase 83 Units/L (26-192) 05/21/25 21:31 Troponin I High Sens 4.2 ng/L (4.0-60.0) 05/21/25 23:40 Total Protein 6.9 g/dL (6.4-8.2) 05/21/25 21:31 Albumin 3.6 g/dL (3.4-5.0) 05/21/25 21:31 Globulin 3.3 g/dL (2.5-4.5) 05/21/25 21:31 Albumin/Globulin Ratio 1.1 Ratio (1.1-2.1) 05/21/25 21:31 EKG Rate: 67 [place]: LAD Rhythm: NSR ST: Normal Opioid Opioid Risk Tool Age (Fred box if 16-45): No History of Preadolescent Sexual Abuse: No Total: 0 Total Score Risk Category: Low Risk Copyright: Evin POZO predicting aberrant behaviors Discharge Plan Diagnosis Discharge Problem: Acute hyponatremia Discharge Plan Patient Disposition: ADMITTED INPATIENT Condition: Stable Prescriptions: No Action cetirizine [Zyrtec] 10 mg Tablet 10 mg PO QDAY alprazolam [Xanax] 1 mg tablet 1 mg PO BID PRN valacyclovir 1 gram tablet 1,000 mg PO TID meloxicam 15 mg Tablet 15 mg PO QDAY omeprazole 40 mg Capsule,Delayed Release(Dr/Ec) 40 mg PO QDAY famotidine 20 mg Tablet 20 mg PO BID oxycodone-acetaminophen 10-325 mg tablet 1 tab PO TID PRN dicyclomine 20 mg tablet 20 mg PO QDAY PRN estradiol 2 mg tablet 2 mg PO QDAY folic acid 1 mg Tablet 1 mg PO QDAY fluoxetine [Prozac] 20 mg capsule 40 mg PO DAILY pregabalin [Lyrica] 50 mg Capsule 50 mg PO BID tizanidine 4 mg tablet 4 mg PO BID zolpidem 10 mg tablet 10 mg PO HS ondansetron 4 mg tablet,disintegrating 4 mg PO Q6HR PRN lisinopril 2.5 mg tablet 2.5 mg PO QDAY rosuvastatin 5 mg tablet 5 mg PO QMWF amlodipine 5 mg Tablet 5 mg PO DAILY Qty: 30 0RF Health Concerns: Post Hospitalization: new medications and changes needed to prevent readmission or further decline. Pt educated and given instructions on all concerns. Plan of Treatment: Continue with present treatment and follow up plan. Pt is to keep follow up appointment as instructed and take medications as ordered. Orders to Discharge Patient Discharge Orders: Transfer (Routine); Ordered 05/22/25 Ordered By: Isaac Al Follow ups/Referrals Follow ups/Referrals: Ric Roblero [Primary Care Provider, MEDICAL] - 3 days Instructions Stand Alone Forms: Find Help Web Site, Post Hospital Follow Up Care Print Language: PORTUGUESE
[2025-05-22] MEDS ORDERED: CONSULT PHARMACY - POTASSIUM & MAGNESIUM XX SCH ×2 (01:30→07:00)
[2025-05-22] MEDS: NS 1,000 ML IV 1,000 ML IV SCH (01:45)
[2025-05-22 02:10] VITALS: BMI 28.5
[2025-05-22] MEDS: ZOFRAN TAB 4 MG SL PRN (05:04)
[2025-05-22 05:45] LABS: MEAN PLATELET VOLUME 7.7 fL (7.4-11.0); RED CELL DISTRIBUTION WIDTH 13.8 % (11.6-16.5)
[2025-05-22 05:52] LABS: COR CA(FOR HYPOALB) 9.7 mg/dL (8.5-10.1); CREATININE 0.77 mg/dL (0.55-1.02); eGFR NON BLACK RACES > 60 (>60)
[2025-05-22] MEDS: MAG-OX TAB PO SCH (08:17)
[2025-05-22] MEDS: NORVASC TAB 5 MG PO SCH (08:17)
[2025-05-22] MEDS: K-DUR TAB 20 MEQ PO SCH (08:17)
[2025-05-22] MEDS: ZESTRIL TAB 5 MG PO SCH (08:17)
[2025-05-22] MEDS ORDERED: PHARMACY CONSULT XX SCH (09:00)
[2025-05-22] MEDS ORDERED: ULTRAM PO PRN (09:21)
[2025-05-22] MEDS: LOVENOX INJ 40 MG SYR SC SCH (09:44)
[2025-05-22] MEDS: ALPRAZOLAM ODT PO SCH (09:44)
--- NOTE | 2025-05-22 12:55 | RAD ---
EXAM: CHEST, PA/LAT ADULT HISTORY: hyponatremia, weakness; COMPARISON: No relevant prior studies were available for comparison at the time of interpretation. TECHNIQUE: CHEST, PA/LAT ADULT FINDINGS: Chest: Lines and tubes: Cardiac leads overlie the chest. Mediastinum: Cardiac and mediastinal shadow is within normal limits for size and contour. Pulmonary vessels: No pulmonary vascular congestion. Lung mobley: No suspicious airspace opacity. Pleura: No effusion. No pneumothorax. Bones and soft tissues: No acute osseous or soft tissue abnormality. IMPRESSION: 1. No acute cardiopulmonary abnormality THIS IS AN ELECTRONICALLY VERIFIED FINAL REPORT 05/22/2025 12:52 PM - Electronically signed by Rashi Duckworth MD
[2025-05-22] MEDS: LEVSIN/MAALOX/LIDOC VISC PO SCH (13:04)
[2025-05-22] MEDS: OMNIPAQUE 350 mg/mL 100 mL BTL 100 ML ONE (13:13)
--- NOTE | 2025-05-22 15:55 | CT ---
EXAM: CT ABDOMEN AND PELVIS WITH CONTRAST HISTORY: N/V/D, hyponatremia; COMPARISON: None. TECHNIQUE: A xial CT images were obtained through the abdomen and pelvis after the intravenous administration of contrast. Coronal reformatted images were included. Informed written consent was obtained prior to contrast administration. All CT scans at this facility use dose modulation, iterative reconstruction, and/or weight based dosing when appropriate to reduce radiation dose to as low as reasonably achievable. FINDINGS: LOWER THORAX: Within normal limits. ABDOMEN: LIVER: Within normal limits. GALLBLADDER: Absent SPLEEN: Within normal limits. PANCREAS: Within normal limits. KIDNEYS: Tiny left renal cysts ADRENAL GLANDS: Within normal limits. GI TRACT: No evidence of inflammatory changes or obstruction at this time LYMPH NODES: No abnormally enlarged nodes. VESSELS: Within normal limits. PERITONEUM / RETROPERITONEUM: No free gas. PELVIS: BLADDER: Within normal limits. GENITALS: Uterus is absent BONES: Multilevel degenerative changes in the spine IMPRESSION: No inflammatory changes within the bowel. No evidence of obstruction. No intra-abdominal fluid collections or other acute abnormality THIS IS AN ELECTRONICALLY VERIFIED FINAL REPORT 05/22/2025 3:42 PM - Electronically signed by Pernell Jeff MD
[2025-05-22] MEDS: AMBIEN PO SCH (20:28)
[2025-05-23] MEDS: TYLENOL 325 MG TAB PO PRN (00:55)
[2025-05-23 04:45] VITALS: TEMP 98.1
[2025-05-23 06:15] LABS: MEAN PLATELET VOLUME 7.6 fL (7.4-11.0); RED CELL DISTRIBUTION WIDTH 14.0 % (11.6-16.5)
[2025-05-23 06:30] LABS: COR CA(FOR HYPOALB) 9.6 mg/dL (8.5-10.1); CREATININE 0.79 mg/dL (0.55-1.02); eGFR NON BLACK RACES > 60 (>60)
[2025-05-23 08:32] VITALS: BP 145/66; PULSE 74; RESP 18; O2SAT 97
--- NOTE | 2025-05-23 08:58 | DR.H&P ---
H&P History & Physical for Day of: H&P Date: 05/22/25 Chief Complaint Chief Complaint: weakness diarrhea, abdominal pain History of Present Illness History of Present Illness: Patient is a 69-year-old female with a past medical history of Hypertension, depression/anxiety, hyperlipidemia, arthritis presenting with weakness, diarrhea, abdominal pain. Patient reports symptoms started last Sunday at which at that time she went to [place] [facility]. She was noted to have hyponatremia and treated and discharged. In the ER she was noted to have hyponatremia. Labs/imaging: WBC 6.1, hemoglobin 11.3, platelets 309, sodium 375607, potassium 3.7, creatinine 0.77, glucose 88, magnesium 1.6, troponin negative. Patient was admitted for hyponatremia, dehydration, abdominal pain and diarrhea. Will order CT abdomen pelvis for further evaluation. Continue with IV fluids. Order stool cultures. Will also give a GI cocktail due to abdominal pain. Will also order chest x-ray. Restart home medications. Sodium has responded to his IV fluids. Continue to monitor. Otherwise continue with current treatment plan. Continue closely monitor and follow-up labs/imaging. Time spent on clinical assessment, reviewing labs and imaging, decision making, and documentation greater than 45 minutes. Past Medical History Past Medical History: Anxiety, Arthritis, Depression, GERD and Hyperthyroidism Past Surgical History Surgical History: Appendectomy, Cholecystectomy, Hysterectomy, Ortho Surgery and Other Family History Family Medical History: [place], Sudden Cardiac and Hypertension Social History Does patient currently use any type of tobacco product: No Type of Tobacco Use: None Does any household member use tobacco: No Alcohol Use: None Drug Use: None Medications Home Medications: Home Medications Medication Instructions Recorded Confirmed Type cetirizine 10 mg tablet (Zyrtec) 10 mg PO QDAY 4 05/22/25 History dicyclomine 20 mg tablet 20 mg PO QDAY 09/28/2305/22 History estradiol 2 mg tablet 2 mg PO QDAY 09/28/23 History famotidine 20 mg tablet 20 mg PO BID 09/28/23 History folic acid 1 mg tablet 1 mg PO BID 09/28/23 5 History meloxicam 15 mg tablet 15 mg PO PRN PRN 09/28/23 History omeprazole 40 mg capsule,delayed 40 mg PO QDAY 4 05/22/25 History release ondansetron 4 mg disintegrating 4 mg PO Q6HR PRN 04/2905/22/25 History tablet rosuvastatin 5 mg tablet 5 mg PO QMWF 04/29/24 History acetaminophen 300 mg-codeine 60 mg 1 tab PO TID PRN 05/22/25 History tablet alprazolam 0.5 mg tablet (Xanax) 0.5 mg PO QDAY 05/22/25 History duloxetine 60 mg capsule,delayed 60 mg PO QDAY 5 05/22/25 History release hydrochlorothiazide 25 mg tablet 25 mg PO QDAY 5 05/22/25 History lisinopril 10 mg tablet 10 mg PO QDAY 05/22/2505/22 History sumatriptan succinate 100 mg tablet 100 mg PO DIREC ZOYA 05/22/25 05/22/25 History tizanidine 2 mg tablet 2 mg PO QID 05/22/25 5 History tramadol 50 mg tablet 50 mg PO Q6H PRN 05/22/25 History zolpidem 12.5 mg tablet,extended 12.5 mg PO QPM PRN 05/22/25 History release,multiphase Allergies Allergies Allergy/AdvReac Type Severity Reaction Status Date / Time No Known Allergies Allergy Verified 09/28/23 20:01 Labs 05/23/25 05:46 05/23/25 05:46 Labs: Laboratory WBC 6.1 X10^3/uL (3.6-10.0) 05/22/25 05:18 RBC 3.67 X10^6/uL (3.5-5.4) 05/22/25 05:18 Hgb 11.3 g/dL (12.0-16.0) L 05/22/25 05:18 Hct 32.8 % (36.0-47.0) L 05/22/25 05:18 MCV 89.2 fL (80.0-100.0) 05/22/25 05:18 MCH 30.8 pg (27.0-34.0) 05/22/25 05:18 MCHC 34.5 g/dL (33.0-35.0) 05/22/25 05:18 RDW 13.8 % (11.6-16.5) 05/22/25 05:18 Plt Count 309 X10^3/uL (150.0-450.0) 05/22/25 05:18 MPV 7.7 fL (7.4-11.0) 05/22/25 05:18 Neut % (Auto) 54.2 % (42.0-75.0) 05/22/25 05:18 Lymph % (Auto) 30.6 % (21.0-51.0) 05/22/25 05:18 [place] % (Auto) 10.4 % (0.0-13.0) 05/22/25 05:18 Eos % (Auto) 4.0 % (0.9-2.9) H 05/22/25 05:18 Baso % (Auto) 0.8 % (0.2-1.0) 05/22/25 05:18 Neut # (Auto) 3.3 x10^3/uL (2.2-4.8) 05/22/25 05:18 Lymph # (Auto) 1.9 X10^3/uL (1.3-2.9) 05/22/25 05:18 [place] # (Auto) 0.6 x10^3/uL (0.3-0.8) 05/22/25 05:18 Eos # (Auto) 0.2 x10^3/uL (0.0-0.2) 05/22/25 05:18 Baso # (Auto) 0.0 X10^3/uL (0.0-0.1) 05/22/25 05:18 Absolute Nucleated RBC 0.1 /100WBC 05/22/25 05:18 D-Dimer 0.30 ug/ml (0.0-0.57) 05/21/25 21:31 Sodium 132 mmol/L (136-145) L 05/22/25 05:18 Corrected Sodium TNP 05/22/25 05:18 Potassium 3.7 mmol/L (3.5-5.1) 05/22/25 05:18 Chloride 96 mmol/L (98-107) L 05/22/25 05:18 Carbon Dioxide 25.1 mmol/L (21-32) 05/22/25 05:18 BUN 4 mg/dL (7-18) L 05/22/25 05:18 Creatinine 0.77 mg/dL (0.55-1.02) 05/22/25 05:18 Est GFR (MDRD) Af Amer > 60 (>60) 05/22/25 05:18 Est GFR (MDRD) Non-Af > 60 (>60) 05/22/25 05:18 Glucose 88 mg/dL (65-99) 05/22/25 05:18 Calcium 9.1 mg/dL (8.5-10.1) 05/22/25 05:18 Corrected Calcium 9.7 mg/dL (8.5-10.1) 05/22/25 05:18 Magnesium 1.6 mg/dL (2.0-2.9) L 05/22/25 05:18 Total Bilirubin 0.40 mg/dL (0.2-1.0) 05/22/25 05:18 AST 21 Units/L (15-37) 05/22/25 05:18 ALT 46 Units/L (12-78) 05/22/25 05:18 Alkaline Phosphatase 141 Units/L (46-116) H 05/22/25 05:18 Creatine Kinase 83 Units/L (26-192) 05/21/25 21:31 Troponin I High Sens 4.2 ng/L (4.0-60.0) 05/21/25 23:40 Total Protein 6.6 g/dL (6.4-8.2) 05/22/25 05:18 Albumin 3.3 g/dL (3.4-5.0) L 05/22/25 05:18 Globulin 3.3 g/dL (2.5-4.5) 05/22/25 05:18 Albumin/Globulin Ratio 1.0 Ratio (1.1-2.1) L 05/22/25 05:18 Review of Systems Constitutional: Weakness Eyes: No Symptoms Reported ENT: No Symptoms Reported Respiratory: No Symptoms Reported Cardiovascular: No Symptoms Reported Gastrointestinal: Abdominal Pain and Diarrhea Genitourinary: No Symptoms Reported Musculoskeletal: No Symptoms Reported Skin: No Symptoms Reported Neurological: No Symptoms Reported Physical Exam Vital Signs: Vital Signs Temperature 98.0 F Temperature 97.2 F Pulse Rate [Left] 73 Pulse Rate [Left] 67 Respiratory Rate 18 Respiratory Rate 18 Respiratory Rate 19 Blood Pressure [Left Arm] 145/62 Blood Pressure [Left Arm] 142/67 O2 Sat by Pulse Oximetry 97 O2 Sat by Pulse Oximetry 94 Oriented: Normal Eyes: Normal Ear: Normal Nose: Normal Throat: Normal Respiratory: Clear Throughout Cardiovascular: Normal : Normal Auscultation: Bowel Sounds: Normal Palpation: Normal Tenderness: Epigastric and Mild Skin: Decreased [place] Musculoskeletal: Normal Psychiatric: Normal Mood Description: Calm and Appropriate Affect: Normal Speech Pattern: Clear and Appropriate Assessment/Plan (1) Acute hyponatremia: Status: Acute Plan: continue IVF monitor electrolytes (2) Dehydration: Status: Acute (3) Generalized weakness: Status: Acute (4) Abdominal pain: Status: Acute Plan: order CTAP follow up results. (5) HTN (hypertension): Qualifiers: Hypertension type: primary hypertension Qualified Code(s): I10 - Essential (primary) hypertension Status: Acute (6) HLD (hyperlipidemia): Qualifiers: Hyperlipidemia type: mixed hyperlipidemia Qualified Code(s): E78.2 - Mixed hyperlipidemia Status: Acute (7) Anxiety and depression: Status: Acute Review H&P Reviewed: Yes Patient was examined?: Yes
--- NOTE | 2025-05-25 10:16 | W.DIS.FURT ---
Summary of Discharge Discharge Summary of Date Date of Exam: 05/23/25 Admission Date Date of Admission: 05/21/25 Admission Diagnosis Patient Problems (Updated 05/23/25 @ 08:56 by Bill Gabriel MD) Acute hyponatremia (Acute) E87.1 Hospital Course: Patient is a 69-year-old female with a past medical history of Hypertension, depression/anxiety, hyperlipidemia, arthritis presenting with weakness, diar nori, abdominal pain. Patient reports symptoms started last Sunday at which at that time she went to [facility]. She was noted to have hyponatremia and treated and discharged. In the ER she was noted to have hyponatremia. Labs/imaging: WBC 6.1, hemoglobin 11.3, platelets 309, sodium 126, potassium 3.7, creatinine 0.77, glucose 88, magnesium 1.6, troponin negative. Patient was admitted for hyponatremia, dehydration, abdominal pain and diarrhea. Her labs were monitored daily and electrolytes replaced as needed. CT abdomen pelvis was done which did not show any acute changes. Chest x-ray was also normal. She was feeling better. Her sodium level improved to 138. She was tolerating p.o. intake and ambulating. She denied having any nausea, vomiting or diarrhea. She was stable for discharge. She will need to follow-up with PCP and have repeat labs. Time spent on clinical assessment, reviewing labs and imaging, decision making, and documentation greater than 45 minutes. Vital Signs: Vital Signs (72 hours) 05/21/25 20:09 05/21/25 21:30 05/21/25 21:44 Temperature 97.6 F Pulse Rate 70 Pulse Rate [Left] Respiratory Rate 18 Blood Pressure 142/64 115/56 130/73 Blood Pressure [Left Arm] O2 Sat by Pulse Oximetry 98 Oxygen Delivery Method Room Air 05/21/25 22:08 05/21/25 22:15 05/21/25 22:29 Temperature Pulse Rate 63 66 67 Pulse Rate [Left] Respiratory Rate 23 24 Blood Pressure Blood Pressure [Left Arm] O2 Sat by Pulse Oximetry 99 99 98 Oxygen Delivery Method Room Air 05/21/25 22:30 05/21/25 22:32 05/21/25 22:46 Temperature Pulse Rate 62 81 Pulse Rate [Left] Respiratory Rate 22 35 H Blood Pressure 164/65 Blood Pressure [Left Arm] O2 Sat by Pulse Oximetry 98 97 Oxygen Delivery Method 05/21/25 23:01 05/21/25 23:17 05/21/25 23:30 Temperature Pulse Rate 69 71 67 Pulse Rate [Left] Respiratory Rate 35 H 18 Blood Pressure Blood Pressure [Left Arm] O2 Sat by Pulse Oximetry 100 98 100 Oxygen Delivery Method 05/21/25 23:30 05/21/25 23:30 05/21/25 23:30 Temperature Pulse Rate Pulse Rate [Left] Respiratory Rate Blood Pressure 165/77 165/77 165/77 Blood Pressure [Left Arm] O2 Sat by Pulse Oximetry Oxygen Delivery Method 05/21/25 23:45 05/22/25 00:00 05/22/25 00:00 Temperature Pulse Rate 64 63 Pulse Rate [Left] Respiratory Rate 17 15 Blood Pressure 159/72 Blood Pressure [Left Arm] O2 Sat by Pulse Oximetry 100 98 Oxygen Delivery Method 05/22/25 00:15 05/22/25 00:30 05/22/25 00:30 Temperature Pulse Rate 66 66 Pulse Rate [Left] Respiratory Rate 23 Blood Pressure 145/70 Blood Pressure [Left Arm] O2 Sat by Pulse Oximetry 100 97 Oxygen Delivery Method 05/22/25 00:45 05/22/25 01:02 05/22/25 01:15 Temperature Pulse Rate 65 64 67 Pulse Rate [Left] Respiratory Rate 18 Blood Pressure Blood Pressure [Left Arm] O2 Sat by Pulse Oximetry 98 98 97 Oxygen Delivery Method 05/22/25 01:25 05/22/25 04:00 05/22/25 07:00 Temperature 97.9 F Pulse Rate Pulse Rate [Left] 75 Respiratory Rate 18 Blood Pressure Blood Pressure [Left Arm] 125/62 O2 Sat by Pulse Oximetry 100 Oxygen Delivery Method Room Air Room Air Room Air 05/22/25 07:44 05/22/25 12:00 05/22/25 13:11 Temperature 97.2 F L 98.0 F Pulse Rate Pulse Rate [Left] 67 73 Respiratory Rate 19 18 18 Blood Pressure Blood Pressure [Left Arm] 142/67 145/62 O2 Sat by Pulse Oximetry 94 L 97 Oxygen Delivery Method Room Air Room Air 05/22/25 14:11 05/22/25 16:00 05/22/25 16:32 Temperature 97.9 F Pulse Rate Pulse Rate [Left] 92 H Respiratory Rate 18 15 18 Blood Pressure Blood Pressure [Left Arm] 147/67 O2 Sat by Pulse Oximetry 99 Oxygen Delivery Method Room Air 05/22/25 17:32 05/22/25 19:00 05/22/25 20:00 Temperature 98.3 F Pulse Rate Pulse Rate [Left] 86 Respiratory Rate 18 16 Blood Pressure Blood Pressure [Left Arm] 150/67 O2 Sat by Pulse Oximetry 96 Oxygen Delivery Method Room Air Room Air 05/22/25 20:28 05/22/25 21:28 05/22/25 23:48 Temperature 97.4 F L Pulse Rate Pulse Rate [Left] 88 Respiratory Rate 19 17 16 Blood Pressure Blood Pressure [Left Arm] 150/72 O2 Sat by Pulse Oximetry 96 Oxygen Delivery Method Room Air 05/23/25 00:55 05/23/25 01:55 05/23/25 04:00 Temperature 98.1 F Pulse Rate Pulse Rate [Left] 77 Respiratory Rate 17 17 16 Blood Pressure Blood Pressure [Left Arm] 130/60 O2 Sat by Pulse Oximetry 96 Oxygen Delivery Method Room Air 05/23/25 07:00 05/23/25 08:00 05/23/25 08:41 Temperature 98.1 F Pulse Rate Pulse Rate [Left] 74 Respiratory Rate 18 18 Blood Pressure Blood Pressure [Left Arm] 145/66 O2 Sat by Pulse Oximetry 97 Oxygen Delivery Method Room Air Room Air Labs: Laboratory Last Values WBC 3.9 X10^3/uL (3.6-10.0) 05/23/25 05:46 RBC 3.53 X10^6/uL (3.5-5.4) 05/23/25 05:46 Hgb 10.9 g/dL (12.0-16.0) L 05/23/25 05:46 Hct 31.7 % (36.0-47.0) L 05/23/25 05:46 MCV 90.0 fL (80.0-100.0) 05/23/25 05:46 MCH 30.8 pg (27.0-34.0) 05/23/25 05:46 MCHC 34.2 g/dL (33.0-35.0) 05/23/25 05:46 RDW 14.0 % (11.6-16.5) 05/23/25 05:46 Plt Count 280 X10^3/uL (150.0-450.0) 05/23/25 05:46 MPV 7.6 fL (7.4-11.0) 05/23/25 05:46 Neut % (Auto) 47.8 % (42.0-75.0) 05/23/25 05:46 Lymph % (Auto) 30.3 % (21.0-51.0) 05/23/25 05:46 [place] % (Auto) 18.6 % (0.0-13.0) H 05/23/25 05:46 Eos % (Auto) 2.3 % (0.9-2.9) 05/23/25 05:46 Baso % (Auto) 1.0 % (0.2-1.0) 05/23/25 05:46 Neut # (Auto) 1.9 x10^3/uL (2.2-4.8) L 05/23/25 05:46 Lymph # (Auto) 1.2 X10^3/uL (1.3-2.9) L 05/23/25 05:46 [place] # (Auto) 0.7 x10^3/uL (0.3-0.8) 05/23/25 05:46 Eos # (Auto) 0.1 x10^3/uL (0.0-0.2) 05/23/25 05:46 Baso # (Auto) 0.0 X10^3/uL (0.0-0.1) 05/23/25 05:46 Absolute Nucleated RBC 0.1 /100WBC 05/23/25 05:46 D-Dimer 0.30 ug/ml (0.0-0.57) 05/21/25 21:31 Sodium 138 mmol/L (136-145) 05/23/25 05:46 Corrected Sodium TNP 05/23/25 05:46 Potassium 3.9 mmol/L (3.5-5.1) 05/23/25 05:46 Chloride 105 mmol/L (98-107) 05/23/25 05:46 Carbon Dioxide 24.4 mmol/L (21-32) 05/23/25 05:46 BUN 3 mg/dL (7-18) L 05/23/25 05:46 Creatinine 0.79 mg/dL (0.55-1.02) 05/23/25 05:46 Est GFR (MDRD) Af Amer > 60 (>60) 05/23/25 05:46 Est GFR (MDRD) Non-Af > 60 (>60) 05/23/25 05:46 Glucose 89 mg/dL (65-99) 05/23/25 05:46 Calcium 8.8 mg/dL (8.5-10.1) 05/23/25 05:46 Corrected Calcium 9.6 mg/dL (8.5-10.1) 05/23/25 05:46 Magnesium 2.0 mg/dL (2.0-2.9) 05/23/25 05:46 Total Bilirubin 0.20 mg/dL (0.2-1.0) 05/23/25 05:46 AST 20 Units/L (15-37) 05/23/25 05:46 ALT 38 Units/L (12-78) 05/23/25 05:46 Alkaline Phosphatase 120 Units/L (46-116) H 05/23/25 05:46 Creatine Kinase 83 Units/L (26-192) 05/21/25 21:31 Troponin I High Sens 4.2 ng/L (4.0-60.0) 05/21/25 23:40 Total Protein 5.9 g/dL (6.4-8.2) L 05/23/25 05:46 Albumin 3.0 g/dL (3.4-5.0) L 05/23/25 05:46 Globulin 2.9 g/dL (2.5-4.5) 05/23/25 05:46 Albumin/Globulin Ratio 1.0 Ratio (1.1-2.1) L 05/23/25 05:46 Reason For Visit: HYPONATREMIA, WEAKNESS Discharge Diagnosis All Active Problems (Updated 05/23/25 @ 08:56 by Bill Gabriel MD) Abdominal pain (Acute) Anxiety and depression (Acute) HLD (hyperlipidemia) (Acute) HTN (hypertension) (Acute) Anemia (Acute) Generalized weakness (Acute) Dehydration (Acute) Laceration of eyebrow and forehead (Acute) Hypotension (Acute) Accidental drug overdose (Acute) Acute nontraumatic kidney injury (Acute) Acute hyponatremia (Acute) Plan of Treatment: Continue with present treatment and follow up plan. Pt is to keep follow up appointment as instructed and take medications as ordered. Discharge Medications Discharge Medications: No Known Allergies Allergy (Verified 09/28/23 20:01) CONTINUE taking the following medications acetaminophen 300 mg-codeine 60 mg tablet 1 tab PO TID PRN 05/22/25 [History] alprazolam 0.5 mg tablet (Xanax) 0.5 mg PO QDAY 05/22/25 [History] duloxetine 60 mg capsule,delayed release 60 mg PO QDAY 05/22/25 [History] lisinopril 10 mg tablet 10 mg PO QDAY 05/22/25 [History] sumatriptan succinate 100 mg tablet 100 mg PO DIRECTED 05/22/25 [History] tizanidine 2 mg tablet 2 mg PO QID 05/22/25 [History] tramadol 50 mg tablet 50 mg PO Q6H PRN 05/22/25 [History] zolpidem 12.5 mg tablet,extended release,multiphase 12.5 mg PO QPM PRN 05/22/25 [History] Discharge Disposition Discharge Disposition: To home Discharge Condition: Stable Discharge Plan Discharge Plan Hospital Course: Patient is a 69-year-old female with a past medical history of Hypertension, depression/anxiety, hyperlipidemia, arthritis presenting with weakness, diarrhea, abdominal pain. Patient reports symptoms started last Sunday at which at that time she went to [facility]. She was noted to have hyponatremia and treated and discharged. In the ER she was noted to have hyponatremia. Labs/imaging: WBC 6.1, hemoglobin 11.3, platelets 309, sodium 126, potassium 3.7, creatinine 0.77, glucose 88, magnesium 1.6, troponin negative. Patient was admitted for hyponatremia, dehydration, abdominal pain and diarrhea. Her labs were monitored daily and electrolytes replaced as needed. CT abdomen pelvis was done which did not show any acute changes. Chest x-ray was also normal. She was feeling better. Her sodium level improved to 138. She was tolerating p.o. intake and ambulating. She denied having any nausea, vomiting or diarrhea. She was stable for discharge. She will need to follow-up with PCP and have repeat labs. Time spent on clinical assessment, reviewing labs and imaging, decision making, and documentation greater than 45 minutes. Patient Disposition: 01 HOME, SELF-CARE Condition: Stable Health Concerns: Post Hospitalization: new medications and changes needed to prevent readmission or further decline. Pt educated and given instructions on all concerns. Plan of Treatment: Continue with present treatment and follow up plan. Pt is to keep follow up appointment as instructed and take medications as ordered. Prescription drug monitoring program results: PDMP reviewed and no concerns identified Prescriptions: Continued alprazolam [Xanax] 0.5 mg tablet 0.5 mg PO QDAY lisinopril 10 mg tablet 10 mg PO QDAY tizanidine 2 mg tablet 2 mg PO QID acetaminophen-codeine 300-60 mg tablet 1 tab PO TID PRN duloxetine 60 mg capsule,delayed release(DR/EC) 60 mg PO QDAY zolpidem 12.5 mg tablet,ext release multiphase 12.5 mg PO QPM PRN sumatriptan succinate 100 mg tablet 100 mg PO DIRECTED tramadol 50 mg tablet 50 mg PO Q6H PRN cetirizine [Zyrtec] 10 mg Tablet 10 mg PO QDAY meloxicam 15 mg Tablet 15 mg PO PRN PRN omeprazole 40 mg Capsule,Delayed Release(Dr/Ec) 40 mg PO QDAY famotidine 20 mg Tablet 20 mg PO BID dicyclomine 20 mg tablet 20 mg PO QDAY estradiol 2 mg tablet 2 mg PO QDAY folic acid 1 mg Tablet 1 mg PO BID ondansetron 4 mg tablet,disintegrating 4 mg PO Q6HR PRN rosuvastatin 5 mg tablet 5 mg PO QMWF Discontinued hydrochlorothiazide 25 mg tablet 25 mg PO QDAY Orders to Discharge Patient Discharge Orders: Discharge (Routine); Ordered 05/23/25 Ordered By: Dorina Henderson Follow ups/Referrals Follow ups/Referrals: Ric Roblero [Primary Care Provider, MEDICAL] - 3 days Instructions Stand Alone Forms: Excuse From Work or School, Find Help Web Site, Post Hospital Follow Up Care Print Language: TELUGU
== END 2025-05-23 10:40 | disposition home or self-care (01) ==
LOC: MED/SURG 20:06 → ER 20:06 → MED/SURG 05-22 01:30
PROVIDERS: ADMIT Family Medicine; ATTEND Family Medicine
DX: E78.2 Mixed hyperlipidemia; R53.1 Weakness; M19.90 Unspecified osteoarthritis, unspecified site; R94.31 Abnormal electrocardiogram [ECG] [EKG]; R19.7 Diarrhea, unspecified; Z79.899 Other long term (current) drug therapy; R10.84 Generalized abdominal pain; R06.02 Shortness of breath; F41.8 Other specified anxiety disorders; E87.1 Hypo-osmolality and hyponatremia; E86.0 Dehydration; I10 Essential (primary) hypertension; R74.8 Abnormal levels of other serum enzymes; F32.A Depression, unspecified; R11.2 Nausea with vomiting, unspecified; E83.42 Hypomagnesemia; K21.9 Gastro-esophageal reflux disease without esophagitis